=== PATIENT | male | born 1985 | race Caucasian/White ===

== ENCOUNTER 2023-11-30 14:38 | Emergency (ER) | payer OTHER, SELFPAY ==
--- NOTE | 2023-11-30 15:28 | ED.PSYCH ---
HPI - Psych General Chief Complaint: Overdose Stated Complaint: SUBSTANCE USE,GIVEN NARCAN PER EMS Time Seen by Provider: 11/30/23 14:42 Source: patient Mode of arrival: EMS Limitations: other (poor historian) History of Present Illness HPI Narrative: 37 yo male states he sniffs cocaine and heroin. reportedly sniffed something and overdose - given 8mg by bystanders awake on EMS arrival states he wants help with detox and has a rash on his buttocks. EMS notes blood sugar 450s complaint: substance abuse Onset (ago): unknown Duration: constant History of same: Yes Relieving factors: none Exacerbating factors: drug use Context: recent drug abuse Associated psychiatric symptoms: none Associated symptoms: denies other symptoms Treatments prior to arrival: other (8mg IN narcan) Related Data Allergies Allergy/AdvReac Type Severity Reaction Status Date / Time No Known Allergies Allergy Verified 11/30/23 14:56 Review of Systems Review of Systems: ROS unable to be obtained due to poor historian PMFSH Past Medical History Onset Date is defined in the Problem List Problems that require an onset date and time if occurred within 24 hrs of arrival to the ED Aortic Dissection and Rupture; Neurologic impairment; Cardiopulmonary Arrest; Endotracheal Intubation; Insertion or Replacement of Mechanical Circulatory Assist Device Medical History Active substance abuse Social History Social History (Updated 11/30/23 @ 16:06 by Radha Christy DO) Patient Tobacco Use Status: Tobacco use Unknown Advance Directives: No Advance Directives Information Provided: No Physical Exam Vital Signs: Vital Signs: Last Vital Signs Pulse 90 11/30/23 15:33 Resp 16 11/30/23 15:33 BP 135/67 11/30/23 15:33 Pulse Ox 98 11/30/23 15:33 O2 Del Method Room Air 11/30/23 15:33 BMI result Body Mass Index 23.5 Appearance: Somnolent Oriented X3. No acute distress. Poor historian Eyes: Pupils equal, round and reactive to light. 4mm ENT: Pharynx normal. atraumatic Neck: Normal inspection. Neck supple. CVS: Normal heart rate and rhythm. Pulses normal. Respiratory: No respiratory distress. Breath sounds normal. Abdomen: Soft and non-tender. eczematous rash on both buttocks Skin: Skin warm and dry. Normal skin color. Normal skin turgor. Extremities: No lower extremity edema. Neuro: Oriented X 3. No motor deficit. No sensory deficit. Medical Decision Making Medical Decision Making [facility] Narrative: 37 yo male with PMH of cocaine and heroin abuse here with c/o using drugs and then bystanders gave 8mg IN narcan he is not reliable and is a poor historian. At this time BS was 400s with EMS will obtain basic labs, refer to CARE team for detox, CT head for trauma. signed out to Dr. Dodge pending workup. Differential Diagnosis Differential Diagnoses: The differential diagnosis associated with the presentation includes DM, substance abuse, homelessness Admission/Observation Consideration of admission/observation: Escalation of care including admission/observation considered Lab Data [facility] Lab Attestation statement: I reviewed the patient's lab results. Independent Historian Clinical information obtained from an independent historian. History obtained from or confirmed by: EMS Social Determinants Patient?s care significantly limited by Social Determinants of Health including: Inadequate housing, Low income, Problems related to primary support group and Unemployment Discharge Plan Discharge Clinical Impression: Drug overdose
[2023-11-30 15:33] VITALS: BP 135/67; PULSE 90; RESP 16; O2SAT 98; BMI 23.5
--- NOTE | 2023-11-30 16:03 | PC.NURSE ---
Refusing lab draw per lila Sloan, will re attempt
--- NOTE | 2023-11-30 17:41 | MHC.EDTECH ---
Pt refusing blood work at this time stating in a little bit
[2023-11-30 18:25] VITALS: BP 113/66; PULSE 55; RESP 16; O2SAT 95
--- NOTE | 2023-11-30 18:59 | HO.SUDE ---
Care Team met with pt, a few attempts were made with no success. Pt was unable to engage. I did ask pt if he is interested in detox and he nodded his head yes. Pt will be re-evaluated tomorrow by the recovery team. T/w confirmed with Mila Cole that there are no beds today.
--- NOTE | 2023-11-30 23:00 | PC.NURSE ---
this rn assumed care of pt @ 1900 iv placed in L AC 20g pt tolerated, though verbalized frustration with process. pt medicated according to mar
[2023-12-01 00:06] VITALS: BP 114/66; PULSE 57; RESP 14; O2SAT 98
--- NOTE | 2023-12-01 00:40 | PC.NURSE ---
this rn obtained BC sets and repeat CPK. pt medicated according to mar. per dr quevedo pt does not need lactic acid pt sleeping at this time
--- NOTE | 2023-12-01 06:10 | PC.NURSE ---
pt sleeping positioned on R side awakes to name
[2023-12-01 06:30] VITALS: BP 132/81; PULSE 56; RESP 16; TEMP 36.4; O2SAT 96
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
== END 2023-12-01 07:25 | disposition home or self-care (01) ==
PROVIDERS: Emergency Provider Emergency Medicine
DX: T50.904A Poisoning by unspecified drugs, medicaments and biological substances, undetermined, initial encounter (principal); Y92.9 Unspecified place or not applicable; R73.9 Hyperglycemia, unspecified; L03.317 Cellulitis of buttock; Z11.52 Encounter for screening for COVID-19
CPT/HCPCS: 36415; 70450; 80048; 82550; 85025; 87040; 87635; 96361; 96365; 96366; 99285